=== PATIENT | female | born 1995 | race African-American/Black ===

== ENCOUNTER 2025-06-07 17:12 | Observation (INO) | payer MEDICAID ==
[~2025-06-07] VITALS: Ht 152.4 cm; Wt 47.2 kg
[2025-06-07] MEDS: TERBUTALINE SULFATE 1 MG/ML 1ML VIAL SC SCH (19:30)
[2025-06-07 19:39] LABS: Urine Protein, UAD Negative (Negative)
--- NOTE | 2025-06-07 20:08 | DVHDS2 ---
Physician Discharge Progress N Final Diagnosis: False Labor Problems List: (1) 24 weeks gestation of (2) Abdominal pain affecting (3) Primigravida (4) History of lipoma (5) Childhood asthma Operations or Procedures: Operations or Procedures History of surgical removal of a lipoma Commentary: Commentary 06/07/2025 Subjective 30y/o (0,0,0,0) IUP 24w4d LMP: 12/17/2024 PATRICIA: 09/23/2025 Chief complaint of abdominal pain, tightness that comes and goes. started four hours ago Denies Leaking of fluid or vaginal bleeding Denies N/V or dysuria Receives PNC with Dr Goyal GyNHx #1 - current PMH: childhood asthma PSH: Surgical Removal of a lipoma on the left side of her back Objective REVIEW OF SYSTEM Constitutional: No symptom reported Ears, Nose, & Throat: No symptom reported Eyes: No symptom reported Pulmonary/Respiratory: No symptom reported Cardiovascular: No symptom reported Gastrointestinal: No symptom reported Genitourinary: No symptom reported Musculoskeletal: No symptom reported Skin: No symptom reported Psychiatric: No symptom reported Endocrine: No symptom reported Hematologic/Lymphatic: No symptom reported Urinalysis Test 06/07/25 19:28 Urine Color Light-yellow (Yellow) Urine Clarity Clear (Clear) Urine pH 6.5 (5.0-9.0) Urine Specific [place] 1.012 (1.001-1.035) Urine Protein Negative (Negative) Urine Ketones Negative (Negative) Urine Blood Negative /uL (Negative) Urine Nitrite Negative (Negative) Urine Bilirubin Negative (Negative) Urine Urobilinogen Normal mg/dL (Negative) Urine Leukocyte Esterase Negative /uL (Negative) Urine RBC None seen /hpf (0 - 4) Urine Microscopic WBC 1 /HPF (0-5) Urine Squamous Epithelial Cells Few /hpf (<5) Urine Bacteria Few /hpf (None Seen) H Urine Glucose Normal mg/dL (Normal) Urinary Studies Test 06/07/25 19:28 Urine Protein Negative (Negative) Assessment IUP at 24w 4d Abdominal pain that started today " Cramping " Heart Rate 145 Variability :moderate Accels: 10 bpm X 10 bpm Decels" None noted Uterine: palpated soft and non tender Contractions: occasional Cat 1 Plan UA C&S P.O hydration Terbutaline 0.25 Sub-Q X1 dose Rx Macrobid 100 mg BID X7 days for Bacteria in urine Reassessment @ 2029 Deferred Terbutaline did not demonstrated any contractions in tracing since P.O hydration Tracing Cat 1 and appropriate for gestational age Prescriptions sent to pharmacy via telephone Has scheduled appt with Dr Goyal 06/13 D/C to home in stable condition Discharge home Advised to increase water intake. Follow up with OB care Provider the soonest Keep all scheduled appointments; seek care sooner if needed Rx Macrobid 100mg by oral route 2 times a day x 7days 3rd trimester emergency S&S FMC, labor & pre-eclampsia precautions reviewed with pt; advised to seek health care if any Condition on Discharge: Stable Disposition: Home Discharge Instructions: Diet: Regular Activity: No Restrictions, As Tolerated Medications: PNV Macrobid 100 mg BID X 7 days Follow Up Care: Discharge Statement: Discharge home Keep appointment with OB provider Discharge Care Plan Problem Increase in fluid intake Goals Pain relieved Know Disease Process Instructions Take Rx medications, Notify MD of any issues See pt D/C handouts Establish goals Visit Coding OBGYN Date of Service: Jun 07, 2025 Billing Provider: SHAYY JANE CNM [employer] Common Visit Codes: [id number] CARE DISCHARGE, [id number] INP/OBS CARE (LOW) SHAYY JANEov 2024 20:08
== END 2025-06-07 20:41 | disposition home or self-care (01) ==
LOC: LDRP 17:12
PROVIDERS: ADMIT Obstetrics & Gynecology; ATTEND Obstetrics & Gynecology
DX: O47.02 False labor before 37 completed weeks of gestation, second trimester (principal); O99.512 Diseases of the respiratory system complicating pregnancy, second trimester; J45.909 Unspecified asthma, uncomplicated; Z3A.24 24 weeks gestation of pregnancy; Z98.890 Other specified postprocedural states
CPT/HCPCS: 81001; 81002; 94760; G0378; 59025